=== PATIENT | male | born 1935 | race Caucasian/White ===

== ENCOUNTER 2018-04-26 13:51 | Emergency (ER) | payer MEDICARE ==
[2018-04-26] MEDS: MORPHINE SULFATE 10 MG/ML VIAL. IM ×2 (15:56→17:57)
[2018-04-26] MEDS: ACETAMINOPHEN 500 MG TABLET PO (17:05)
[2018-04-26] MEDS: ONDANSETRON ODT 4 MG TAB.RAPDIS. PO (17:57)
[2018-04-26] MEDS ORDERED: MORPHINE SULFATE 4 MG/ML DISP.SYRIN. IV (18:15)
== END 2018-04-26 19:01 | disposition short-term general hospital (02) ==
LOC: ER 13:51
DX: S72.002A Fracture of unspecified part of neck of left femur, initial encounter for closed fracture (principal); F03.90 Unspecified dementia, unspecified severity, without behavioral disturbance, psychotic disturbance, mood disturbance, and anxiety; Z90.49 Acquired absence of other specified parts of digestive tract; Z88.0 Allergy status to penicillin; W18.39XA Other fall on same level, initial encounter; Y93.89 Activity, other specified; Y99.8 Other external cause status; Y92.091 Bathroom in other non-institutional residence as the place of occurrence of the external cause
CPT/HCPCS: 71045; 73502; 96372; 99285-25; J2270; Q0162